=== PATIENT | female | born 1990 | race African-American/Black ===

== ENCOUNTER 2018-03-23 11:36 | Emergency (ER) | payer MEDICAID, OTHER ==
[~2018-03-23] VITALS: Ht 165.1 cm; Wt 75.0 kg
[2018-03-23 11:42] VITALS: BP 102/74
== END 2018-03-23 14:00 | disposition left against medical advice (07) ==
LOC: ER 12:16
DX: S60.032A Contusion of left middle finger without damage to nail, initial encounter (principal); F12.10 Cannabis abuse, uncomplicated; F17.210 Nicotine dependence, cigarettes, uncomplicated; Y04.0XXA Assault by unarmed brawl or fight, initial encounter; Y93.89 Activity, other specified; Y92.89 Other specified places as the place of occurrence of the external cause
CPT/HCPCS: 99281